=== PATIENT | female | born 1955 | race Caucasian/White ===

== ENCOUNTER 2021-07-02 09:55 | Emergency (ER) | payer OTHER, BC ==
[~2021-07-02] VITALS: Ht 157.5 cm; Wt 73.5 kg
[~2021-07-02 09:55] MED LIST: IBUP-2213 PO; SERT50TA PO; TRAM50TA1 PO
[2021-07-02 10:07] VITALS: BP 186/76
--- NOTE | 2021-07-02 10:10 | NUR ---
PT TO LOBBY.
--- NOTE | 2021-07-02 10:28 | NUR ---
66 Y/O FEMALE C/O LOW BACK PAIN 01/09 X1WEEK. DENIES TRAUMA/INJURY. DENIES FEVER/CHILLS. DENIES N/V. DENIES PMH NKA
[2021-07-02] MEDS ORDERED: NAPR-1704 PO (10:33)
[2021-07-02] MEDS ORDERED: ACET-8386 PO (10:33)
--- NOTE | 2021-07-02 10:43 | NUR ---
Patient discharged with v/s stable. Written and verbal after care instructions ABOUT ACUTE BACK PAIN given and explained. Patient alert, oriented and verbalized understanding of instructions. Ambulatory with steady gait. All questions addressed prior to discharge. ID band removed. Patient advised to follow up with PMD. Rx of NORCO 5-325MG AND NAPROXEN given. Patient educated on indication of medication including possible reaction and side effects. Opportunity to ask questions provided and answered. PT D/C BY DR SALAZAR
== END 2021-07-02 10:43 | disposition home or self-care (01) ==
LOC: MED 09:55
DX: M54.50 Low back pain, unspecified (principal); I10 Essential (primary) hypertension; Z79.899 Other long term (current) drug therapy; Z79.1 Long term (current) use of non-steroidal anti-inflammatories (NSAID); Z79.891 Long term (current) use of opiate analgesic
CPT/HCPCS: 81002; 99283

== ENCOUNTER 2021-08-19 19:58 | Emergency (ER) | payer OTHER, MEDICAID ==
[~2021-08-19] VITALS: Ht 154.9 cm; Wt 72.6 kg
[~2021-08-19 19:58] MED LIST changes: +ACET-8386 PO; +NAPR-1704 PO
[2021-08-19 20:01] VITALS: BP 153/88
--- NOTE | 2021-08-19 20:01 | NUR ---
PT W/C ASSISTED TO BED 9
--- NOTE | 2021-08-19 20:09 | NUR ---
Dr. Timmons examining patient.
[2021-08-19] MEDS ORDERED: MORPHINE SULFATE 4 MG/ML SYR IM ONE (20:15)
[2021-08-19] MEDS ORDERED: KETOROLAC 30 MG/ML VIAL IM ONE (20:15)
--- NOTE | 2021-08-19 20:23 | NUR ---
PT TAKEN TO CT
--- NOTE | 2021-08-19 20:23 | NUR ---
PT HERE WITH COMPLAINT OF LOWER BACK PAIN THAT SHE RATES 10/10 WITH NO TRIGGERS. STATES SHE WAS SEEN BY HER PRIMARY PHYSICIAN ON Friday08/17/21 AND WAS TOLD SHE HAD A URINARY TRACT INFECTION AND PRESCRIBED MEDICATIONS FOR IT, HOWEVER, PT UNABLE TO GET PRESCRIPTION FILLED DUE TO PHARMACY UNABLE TO VERIFY ORDERS. PAIN HAS NOT GONE AWAY SINCE AND HAS BECOME WORSE. PMH: NONE ALLERGIES: NONE
[2021-08-19] MEDS ORDERED: LIDOCAINE 5% 1 EA PATCH TP SCH (20:25)
--- NOTE | 2021-08-19 20:35 | NUR ---
PATIENT BACK FROM CT VIA [facility]
--- NOTE | 2021-08-19 20:50 | NUR ---
PT'S GRANDSON, HARDIK CALLED UNIT TO ASK FOR UPDATE, UPDATED HARDIK WITH CURRENT PT STATUS. PT GAVE CONSENT TO UPDATE FAMILY.
[2021-08-19 21:04] LABS: BASOPHILS # (AUTO) 0.3 K/uL (0.00-0.22); BASOPHILS % (AUTO) 3.8 % (0.0-2.0); EOSINOPHILS # (AUTO) 0.3 K/uL (0-0.4); EOSINOPHILS % (AUTO) 3.3 % (0.0-4.0); HEMATOCRIT 39.4 % (36-48); HEMOGLOBIN 13.5 g/dL (12.0-16.0); LYMPHOCYTES % (AUTO) 25.9 % (20.5-51.1); MEAN CORPUSCULAR HEMOGLOBIN 32 pg (27-31); MEAN CORPUSCULAR HGB CONC 34 g/dL (33-37); MEAN CORPUSCULAR VOLUME 94.1 fL (80-94); MONOCYTES # (AUTO) 0.5 K/uL (0.8-1.0); MONOCYTES % (AUTO) 6.4 % (1.7-9.3); NEUTROPHILS # (AUTO) 4.8 K/uL (1.8-7.7); NEUTROPHILS % (AUTO) 60.6 % (42.2-75.2); PLATELET COUNT (AUTO) 184 K/uL (140-450); RED BLOOD CELL COUNT(AUTO) 4.18 MIL/uL (4.20-5.40); RED CELL DISTRIBUTION WIDTH 13.7 % (11.6-13.7); WHITE BLOOD COUNT (AUTO) 7.8 K/uL (4.8-10.8)
[2021-08-19 21:18] LABS: ALBUMIN 3.2 g/dL (3.4-5.0); ANION GAP 11.4 (8-16); CARBON DIOXIDE 28.2 mmol/L (21-32); CREATININE 0.8 mg/dL (0.6-1.3); POTASSIUM 3.6 mmol/L (3.5-5.1); TOTAL BILIRUBIN 0.3 mg/dL (0.0-1.0)
--- NOTE | 2021-08-19 21:53 | NUR ---
patient ambulated to the bathroom with assist for urine collection
[2021-08-19 22:07] LABS: BILIRUBIN,URINE NEGATIVE (NEGATIVE); BLOOD, URINE NEGATIVE (NEGATIVE); COLOR,URINE YELLOW (YELLOW); LEUKOCYTE ESTERASE ,URINE 1+ (NEGATIVE); NITRITE, URINE NEGATIVE (NEGATIVE); UGLUCOSE NEGATIVE (NEGATIVE)
[2021-08-19 22:08] LABS: APPEARANCE,URINE HAZY (CLEAR)
[2021-08-19] MEDS ORDERED: DICL100G5 TP (22:13)
[2021-08-19] MEDS ORDERED: LEVO-315 PO (22:13)
[2021-08-19] MEDS ORDERED: IBUP-1842 PO (22:13)
[2021-08-19 22:22] LABS: RBC,URINE NONE SEEN /HPF (0-5)
[2021-08-19 22:29] VITALS: BP 153/88
--- NOTE | 2021-08-19 22:33 | NUR ---
Patient discharged with v/s stable. Written and verbal after care instructions given and explained. Patient alert, oriented and verbalized understanding of instructions. Ambulatory with steady gait. All questions addressed prior to discharge. ID band removed. Patient advised to follow up with PMD. Rx of DICLOFENAC, IBUPROFEN, LEVOFLOXACIN given. Patient educated on indication of medication including possible reaction and side effects. Opportunity to ask questions provided and answered.
[2021-08-20] MEDS ORDERED: LIDOCAINE 5% 1 EA PATCH TP SCH (09:00)
== END 2021-08-19 22:33 | disposition home or self-care (01) ==
LOC: MED 19:58
DX: S39.012A Strain of muscle, fascia and tendon of lower back, initial encounter (principal); N39.0 Urinary tract infection, site not specified; I10 Essential (primary) hypertension; Z79.899 Other long term (current) drug therapy; X58.XXXA Exposure to other specified factors, initial encounter; Y93.89 Activity, other specified; Y92.89 Other specified places as the place of occurrence of the external cause; Y99.8 Other external cause status
CPT/HCPCS: 36415; 74176; 80053; 81001; 85025; 87086; 96372; 99284; J1885; J2270

== ENCOUNTER 2021-08-27 12:30 | Emergency (ER) | payer OTHER, MEDICAID ==
[~2021-08-27] VITALS: Ht 154.9 cm; Wt 73.3 kg
[~2021-08-27 12:30] MED LIST changes: +DICL100G5 TP; +IBUP-1842 PO; +LEVO-315 PO
[2021-08-27 13:24] VITALS: BP 175/79
[2021-08-27] MEDS ORDERED: NITR100C7 PO (13:59)
--- NOTE | 2021-08-27 14:20 | NUR ---
NO COMPLETE ASSESSMENT NEEDED NO COMPLETE NECESSARY.
[2021-08-27 14:21] VITALS: BP 160/79
--- NOTE | 2021-08-27 14:22 | NUR ---
Patient discharged with v/s stable. Written and verbal after care instructions given FOR URINARY TRACT INFECTION and explained. Patient alert, oriented and verbalized understanding of instructions. Ambulatory with steady gait. All questions addressed prior to discharge. ID band removed. Patient advised to follow up with PMD. Rx of MACROBID given. Patient educated on indication of medication including possible reaction and side effects. Opportunity to ask questions provided and answered.
[2021-08-27 17:32] LABS: APPEARANCE,URINE CLEAR (CLEAR); BILIRUBIN,URINE 2+ (NEGATIVE); BLOOD, URINE NEGATIVE (NEGATIVE); COLOR,URINE YELLOW (YELLOW); LEUKOCYTE ESTERASE ,URINE NEGATIVE (NEGATIVE); NITRITE, URINE NEGATIVE (NEGATIVE); UGLUCOSE NEGATIVE (NEGATIVE)
== END 2021-08-27 14:22 | disposition home or self-care (01) ==
LOC: MED 12:30
DX: M54.50 Low back pain, unspecified (principal); N39.0 Urinary tract infection, site not specified; I10 Essential (primary) hypertension; Z79.899 Other long term (current) drug therapy
CPT/HCPCS: 81003; 99283

== ENCOUNTER 2022-12-11 23:07 | Emergency (ER) | payer OTHER, MEDICAID ==
[~2022-12-11] VITALS: Ht 160 cm; Wt 79.4 kg
[~2022-12-11 23:07] MED LIST changes: -ACET-8386 PO; +ACET-8905 PO; -LEVO-315 PO; +LEVO-481 PO; +NITR100C7 PO; +TRAM-748 PO; -TRAM50TA1 PO
[2022-12-11 23:09] VITALS: BP 156/79; PULSE 66; RESP 16; TEMP 96.1; O2SAT 100
--- NOTE | 2022-12-11 23:17 | NUR ---
pt w/c assisted to bed
[2022-12-11 23:32] VITALS: TEMP 96.1
--- NOTE | 2022-12-11 23:45 | NUR ---
Patient is a 67/F who came in due to left knee pain since AM described as popping sensation while doing her ADLs, 02/09, aggravated by movement, radiating to left lower extremity, associated with left lower extremity swelling. Patient denies trauma/injury to site. Patient took Tylenol around 2230. PMHx: Denies NKA
[2022-12-12] MEDS ORDERED: KETOROLAC 60 MG/2 ML VIAL IM ONE (00:05)
[2022-12-12] MEDS ORDERED: ACET-8905 PO (00:59)
[2022-12-12] MEDS ORDERED: IBUP-2213 PO (00:59)
--- NOTE | 2022-12-12 01:01 | NUR ---
Patient awake and comfortable in bed. No signs of acute distress at this time. Side rail up and call light within reach.
[2022-12-12 01:30] VITALS: BP 140/79; PULSE 68; RESP 15; O2SAT 98
--- NOTE | 2022-12-12 01:30 | NUR ---
Patient discharged with v/s stable. Written and verbal after care instructions given and explained. Patient alert, oriented and verbalized understanding of instructions. Wheel Chair Assisted with to car. All questions addressed prior to discharge. ID band removed. Patient advised to follow up with PMD. Rx of Ibuprofen & Hydrocodone-Acetaminophen given. Patient educated on indication of medication including possible reaction and side effects. Opportunity to ask questions provided and answered.
[2022-12-12] MEDS ORDERED: ACET-5629 PO (15:50)
== END 2022-12-12 01:30 | disposition home or self-care (01) ==
LOC: MED 23:07
DX: M25.562 Pain in left knee (principal); I10 Essential (primary) hypertension; Z79.1 Long term (current) use of non-steroidal anti-inflammatories (NSAID); Z79.2 Long term (current) use of antibiotics; Z79.899 Other long term (current) drug therapy
CPT/HCPCS: 73562; 96372; 99283; J1885